=== PATIENT | male | born 1995 | race Caucasian/White ===

== ENCOUNTER 2017-08-14 19:20 | Emergency (ER) | payer OTHER ==
[~2017-08-14] VITALS: Ht 182.9 cm; Wt 93.0 kg
[~2017-08-14 19:20] MED LIST: ASCO1CHW17 PO; DEXT-233 PO; IBUP-103 PO
[2017-08-14 19:35] VITALS: TEMP 36.9; Ht 182.9 cm; Wt 93.0 kg
[2017-08-14 20:45] LABS: BASO % 0.4 %; BASO ABS # 0.03 K/uL (0-0.2); EOS % 1.4 %; EOS ABS # 0.11 K/uL (0-0.5); HEMATOCRIT 41.8 % (42-52); HEMOGLOBIN 15.5 g/dL (14.0-18.0); IG# 0.01 K/uL (0.00-0.02); MEAN CELL VOLUME 87.1 fL (80-100); MEAN CORPUSCULAR HEMOGLOBIN 32.3 pg (25-34); MEAN CORPUSCULAR HGB CONC 37.1 g/dl (32-36); MEAN PLATELET VOLUME 10.4 fL (7.4-10.4); MONO % 4.5 %; MONO ABS # 0.35 K/uL (0.11-0.59); NEUT % 66.6 %; NEUT ABS # 5.19 K/uL (1.4-6.5); PLATELET COUNT 166 K/uL (130-400); RED CELL DISTRIBUTION WIDTH CV 11.8 % (11.5-14.5); RED CELL DISTRIBUTION WIDTH SD 37.7 fL (36.4-46.3); WHITE BLOOD COUNT 7.79 K/uL (4.8-10.8)
[2017-08-14 21:05] LABS: ALBUMIN 4.5 gm/dl (3.4-5.0); CALCIUM 9.6 mg/dl (8.5-10.1); CREATININE 0.96 mg/dl (0.60-1.40); POTASSIUM 3.3 mmol/L (3.5-5.1)
[2017-08-14 21:08] LABS: TOTAL PROTEIN 8.4 gm/dl (6.4-8.2)
--- NOTE | 2017-08-14 21:16 | DIAGNOSTIC IMAGING REPORT ---
CT OF THE ABDOMEN AND PELVIS WITHOUT CONTRAST, STONE PROTOCOL CLINICAL HISTORY: Left-sided abdominal pain. Evaluate for stone. COMPARISON STUDY: None. TECHNIQUE: Helical axial images of the abdomen and pelvis were obtained without IV or oral contrast according to renal stone protocol. A dose lowering technique was utilized adhering to the principles of ALARA. FINDINGS: No renal, ureteral or bladder calculi are present. There is no hydronephrosis. There is no perinephric or periureteral infiltration. Evaluation of the abdomen and pelvis is suboptimal on this unenhanced exam. The liver, spleen, adrenal glands and pancreas are unremarkable. The caliber of small and large bowel is normal. The appendix is normal. There is no lymphadenopathy or ascites. There is no peripancreatic or pericholecystic infiltration. Irregularity along the symphysis pubis is noted. IMPRESSION: 1. No urinary calculi or hydronephrosis. 2. No acute process within the abdomen or pelvis on unenhanced exam. 3. Irregularity along the symphysis pubis. This is likely developmental however stress related changes/osteitis pubis could appear similar. Electronically signed by: Jamal Dick M.D. 08/14/2017 9:14 PM Dictated Date/Time: 08/14/2017 9:10 PM
[2017-08-14 21:20] VITALS: BP 115/76; PULSE 71; O2SAT 98
[2017-08-14] MEDS ORDERED: CIPROFLOXACIN 500 MG TAB PO STA (21:20)
[2017-08-14] MEDS ORDERED: CIPR-255 PO (21:27)
[2017-08-14] MEDS ORDERED: PHENAZOPYRIDINE HOME PACK 200 MG VIAL PO ONE (21:30)
--- NOTE | 2017-08-14 22:05 | EMERGENCY ROOM VISIT NOTE ---
History Report prepared by Jus: Espinoza Summers Under the Supervision of: Dr. Shan Streeter M.D. First contact with patient: 20:16 Chief Complaint: URINARY SYMPTOMS Stated Complaint: URINARY PAIN,ABD PAIN Nursing Triage Summary: see triage note History of Present Illness The patient is a 21 year old male who presents to the Emergency Room with complaints of worsening urinary symptoms that started 5 days ago. He states that he has been having burning with urination, as well as an increased urgency of urination. The patient notes that after he urinates, he does not feel like he is finished and still has the urge to urinate. He says that he has not been urinating more frequently however. He states that he went to the Urgent Care earlier today, and was told that his leukocytes showed signs of infection, but that his UTI may be a side effect of something else. The patient says that he was told that the main problem may be a kidney issue or appendicitis. The patient adds that the pain with urination went away 3 days ago for a day or so, but came back yesterday. He says that he woke up this morning with severe pain in his left lower abdomen, and that pain has been coming back for about 15 to 20 minutes after he urinates. The patient denies any fevers or vomiting. The patient states that he has no chronic medical problems. He says that he is sexually active, and he uses condoms every time and has never had sex with men. He notes no history of STDs. Source of History: patient Onset: 5 days ago Position: other (global) Symptom Intensity: burning with urination, increased urgency, denies increased frequency Quality: other (urinary symptoms) Timing: worsening Associated Symptoms: + abdominal pain (left lower), No fevers, No vomiting Note: No other associated symptoms noted. Review of Systems See HPI for pertinent positives & negatives. A total of 10 systems reviewed and were otherwise negative. Past Medical & Surgical Medical Problems: (1) No chronic problems Family History Patient reports no known family medical history. Social History Smoking Status: Never Smoker Housing Status: lives with roommate Occupation Status: student Current/Historical Medications Scheduled Ciprofloxacin Hcl (Cipro), 500 MG PO BID Allergies Coded Allergies: No Known Allergies (Unverified , 08/14/17) Physical Exam Vital Signs Date Time Temp Pulse Resp B/P (MAP) Pulse Ox O2 Delivery O2 Flow Rate FiO2 08/14/17 21:20 71 18 115/76 98 Room Air 08/14/17 19:35 36.9 71 18 129/80 98 Room Air Physical Exam Constitutional: Vital signs reviewed. Eyes: Pupils are equal round reactive to light. Conjunctiva are noninjected. ENT: Pharynx is clear without erythema or exudate. Mucous membranes are moist. Neck supple without meningeal signs. Respiratory: Clear to auscultation bilaterally. Breath sounds are equal bilaterally. Cardiovascular: Regular rate and rhythm. No rubs or gallops. GI: Soft, nondistended with mild suprapubic tenderness. Bowel sounds are present. Musculoskeletal: No peripheral edema. No CVA tenderness. Integumentary: No cyanosis. Neurological: The patient is awake and alert. No focal deficits. Psychiatric: Normal affect. Medical Decision & Procedures ER Provider Diagnostic Interpretation: CT results as stated below per my review and radiologist interpretation. CT OF THE ABDOMEN AND PELVIS WITHOUT CONTRAST, STONE PROTOCOL CLINICAL HISTORY: Left-sided abdominal pain. Evaluate for stone. COMPARISON STUDY: None. TECHNIQUE: Helical axial images of the abdomen and pelvis were obtained without IV or oral contrast according to renal stone protocol. A dose lowering technique was utilized adhering to the principles of ALARA. FINDINGS: No renal, ureteral or bladder calculi are present. There is no hydronephrosis. There is no perinephric or periureteral infiltration. Evaluation of the abdomen and pelvis is suboptimal on this unenhanced exam. The liver, spleen, adrenal glands and pancreas are unremarkable. The caliber of small and large bowel is normal. The appendix is normal. There is no lymphadenopathy or ascites. There is no peripancreatic or pericholecystic infiltration. Irregularity along the symphysis pubis is noted. IMPRESSION: 1. No urinary calculi or hydronephrosis. 2. No acute process within the abdomen or pelvis on unenhanced exam. 3. Irregularity along the symphysis pubis. This is likely developmental however stress related changes/osteitis pubis could appear similar. Electronically signed by: Jamal Dick M.D. 08/14/2017 9:14 PM Dictated Date/Time: 08/14/2017 9:10 PM Laboratory Results 08/14/17 20:30 Red Blood Count 4.80, Mean Corpuscular Volume 87.1, Mean Corpuscular Hemoglobin 32.3, Mean Corpuscular Hemoglobin Concent 37.1, Mean Platelet Volume 10.4, Neutrophils (%) (Auto) 66.6, Lymphocytes (%) (Auto) 27.0, Monocytes (%) (Auto) 4.5, Eosinophils (%) (Auto) 1.4, Basophils (%) (Auto) 0.4, Neutrophils # (Auto) 5.19, Lymphocytes # (Auto) 2.10, Monocytes # (Auto) 0.35, Eosinophils # (Auto) 0.11, Basophils # (Auto) 0.03 08/14/17 20:30 Test 08/14/17 20:20 08/14/17 20:30 08/14/17 21:22 Urine Color YELLOW Urine Appearance CLEAR (CLEAR) Urine pH 5.5 (4.5-7.5) Urine Specific [place] 1.029 (1.000-1.030) Urine Protein TRACE (NEG) Urine Glucose (UA) NEG (NEG) Urine Ketones 1+ (NEG) Urine Occult Blood NEG (NEG) Urine Nitrite NEG (NEG) Urine Bilirubin NEG (NEG) Urine Urobilinogen NEG (NEG) Urine Leukocyte Esterase MODERATE (NEG) Urine WBC (Auto) >30 /hpf (0-5) Urine RBC (Auto) 0-4 /hpf (0-4) Urine Hyaline Casts (Auto) 0 /lpf (0-5) Urine Epithelial Cells (Auto) 0-5 /lpf (0-5) Urine Bacteria (Auto) NEG (NEG) White Blood Count 7.79 K/uL (4.8-10.8) Red Blood Count 4.80 M/uL (4.7-6.1) Hemoglobin 15.5 g/dL (14.0-18.0) Hematocrit 41.8 % (42-52) Mean Corpuscular Volume 87.1 fL (80-100) Mean Corpuscular Hemoglobin 32.3 pg (25-34) Mean Corpuscular Hemoglobin Concent 37.1 g/dl (32-36) Platelet Count 166 K/uL (130-400) Mean Platelet Volume 10.4 fL (7.4-10.4) Neutrophils (%) (Auto) 66.6 % Lymphocytes (%) (Auto) 27.0 % Monocytes (%) (Auto) 4.5 % Eosinophils (%) (Auto) 1.4 % Basophils (%) (Auto) 0.4 % Neutrophils # (Auto) 5.19 K/uL (1.4-6.5) Lymphocytes # (Auto) 2.10 K/uL (1.2-3.4) Monocytes # (Auto) 0.35 K/uL (0.11-0.59) Eosinophils # (Auto) 0.11 K/uL (0-0.5) Basophils # (Auto) 0.03 K/uL (0-0.2) RDW Standard Deviation 37.7 fL (36.4-46.3) RDW Coefficient of Variation 11.8 % (11.5-14.5) Immature Granulocyte % (Auto) 0.1 % Immature Granulocyte # (Auto) 0.01 K/uL (0.00-0.02) Anion Gap 7.0 mmol/L (3-11) Est Creatinine Clear Calc Drug Dose 135.9 ml/min Estimated GFR () 132.3 Estimated GFR (Non- 114.1 BUN/Creatinine Ratio 16.8 (10-20) Calcium Level 9.6 mg/dl (8.5-10.1) Total Bilirubin 0.9 mg/dl (0.2-1) Direct Bilirubin 0.2 mg/dl (0-0.2) Aspartate Amino Transf (AST/SGOT) 29 U/L (15-37) Alanine Aminotransferase (ALT/SGPT) 52 U/L (12-78) Alkaline Phosphatase 62 U/L (45-117) Total Protein 8.4 gm/dl (6.4-8.2) Albumin 4.5 gm/dl (3.4-5.0) Lipase 114 U/L (73-393) Laboratory results as reviewed by me. Medications Administered Medications (Trade) Dose Ordered Sig/Garret Route Start Time Stop Time Status Last Admin Dose Admin Ciprofloxacin (Cipro Tab) 500 mg NOW STAT PO 08/14/17 21:20 08/14/17 21:25 DC 08/14/17 21:20 500 MG Phenazopyridine HCl (Phenazopyridine HCl 200MG Home Pack) 1 homepack UD ONCE PO 08/14/17 21:30 08/14/17 21:31 DC 08/14/17 21:30 1 HOMEPACK ED Course 2017: The patient was evaluated in room A2. A complete history and physical exam was performed. 2119: Cipro Tab 500 mg PO. 2122: I reevaluated the patient and talked to him about his test results. He expressed understanding and agreement with the treatment plan. He will be discharged. 2129: Phenazopyridine HCl 200MG Home Pack 1 homepack PO. Medical Decision This is a 21-year-old male who presents with suprapubic pain and urinary symptoms. Differential diagnosis includes UTI, interstitial cystitis, pyelonephritis, kidney stone, STI. I did perform a limited focused review of portions of the patient's old chart on the electronic medical record. The patient has had no recent pertinent visits to this hospital. I did evaluate the patient as noted above. IV access was established. I did order and personally review the patient's urine analysis as described above. He does have an infection. A urine culture was sent. I did order and review the patient's blood work as noted in the electronic medical record. His white blood cell count is not elevated. I did order a CT of the abdomen and pelvis. I did review the images myself as well as the radiology report as described above. There is no acute findings. There is some irregularity of the symphysis pubis thought to be developmental. I did discuss the test results with the patient. I did treat him with Cipro. He was also given a Pyridium home pack and a prescription for Cipro. He was advised to follow-up with his doctor and also discuss the findings on the CT. He was discharged in good condition. Medication Reconcilliation Current Medication List: was personally reviewed by me Blood Pressure Screening Patient's blood pressure: Elevated blood pressure Impression Primary Impression: Urinary tract infection Scribe Attestation The scribe's documentation has been prepared under my direct and personally reviewed by me in its entirety. I confirm that the note above accurately reflects all work, treatment, procedures, and medical decision making performed by me. Departure Information Dispostion Home / Self-Care Prescriptions Ciprofloxacin Hcl (CIPRO) 500 Mg Tab 500 MG PO BID, #14 TAB Prov: Shan Streeter M.D. 08/14/17 Referrals [facility] (PCP) Patient Instructions ED UTI Cystitis Male, My [facility] Additional Instructions You have been examined and treated today on an emergency basis only. This is not a substitute for, or an effort to provide, complete comprehensive medical care. It is impossible to recognize and treat all injuries or illnesses in a single emergency department visit. It is therefore important that you follow up closely with your physician. Call as soon as possible for an appointment. Talked to your doctor about the findings related to your pubic symphysis bone on CT today. Return for worsening symptoms or if you develop fever, vomiting, or any other concerning symptoms. Problem Qualifiers Primary Impression: Urinary tract infection Urinary tract infection type: site unspecified Hematuria presence: without hematuria Qualified Codes: N39.0 - Urinary tract infection, site not specified
== END 2017-08-14 21:42 | disposition home or self-care (01) ==
LOC: C.EDB 19:23 → C.EDA 21:42
DX: N39.0 Urinary tract infection, site not specified (principal)